=== PATIENT | male | born 1960 | race Caucasian/White ===

== ENCOUNTER 2019-02-14 17:59 | Inpatient (IN) | payer BC ==
[~2019-02-14] VITALS: Ht 182.9 cm; Wt 66.0 kg
--- NOTE | 2019-02-14 18:07 | NUR ---
PT AMBULATED TO ROOM WITH A STEADY GAIT.
--- NOTE | 2019-02-14 18:22 | NUR ---
PT C/O FACIAL NUMBNESS SINCE YESTERDAY WITH BEING SEEN IN [facility] YESTERDAY FOR [facility] SAME. PT STATES HE HAS HAD NECK PROBLEMS THAT CAUSE NUMBNESS TO HIS RIGHT ARM BUT SINCE HIS FACE WAS BECOMING NUMB HE THOUGHT HIS NECK ISSUE WAS BECOMING MORE SERIOUS. PT DENIES CRAIG, VISION CHANGES, N/V, OR UNILATERAL WEAKNESS. FAMILY MEMBER AT BEDSIDE REPORTS HE CAN NOT APPRECIAT ANY SLURRED SPEECH OR FACILA DROOP AT THIS TIME.
[2019-02-14 18:41] LABS: BASOPHILS # (AUTO) 0.04 x10^3/uL (0-0.1); BASOPHILS % (AUTO) 1 % (0-1); EOSINOPHILS # (AUTO) 0.12 x10^3/uL (0-0.4); EOSINOPHILS % (AUTO) 2 % (1-7); LYMPHOCYTES # (AUTO) 2.23 x10^3/uL (1-3.4); LYMPHOCYTES % (AUTO) 32 % (22-44); MD NO; MEAN CORPUSCULAR HGB CONC 33.4 g/dL (33.2-36.2); MEAN CORPUSCULAR VOLUME 95.7 fL (81-97); MEAN PLATELET VOLUME 8.5 fL (7.4-10.4); MONOCYTES # (AUTO) 0.54 x10^3/uL (0.2-0.8); MONOCYTES % (AUTO) 8 % (2-9); NEUTROPHILS # (AUTO) 4.07 x10^3/uL (1.8-6.8); NEUTROPHILS % (AUTO) 58 % (42-75); PLATELET COUNT 206 x10^3/uL (130-400); RED BLOOD COUNT 5.41 x10^6/uL (4.38-5.82); RED CELL DISTRIBUTION WIDTH 13.7 % (9.4-14.8)
[2019-02-14 18:48] LABS: ALBUMIN 3.7 g/dL (3.4-5.0); ANION GAP 8 mmol/L (5-15); CALCIUM 8.7 mg/dL (8.5-10.1); CHLORIDE 106 mmol/L (98-107); CREATININE 0.89 mg/dL (0.7-1.3)
--- NOTE | 2019-02-14 18:55 | NUR ---
PT IN MRI. REPORT TO SHAUN WATTS.
--- NOTE | 2019-02-14 19:00 | NUR ---
PATIENT BACK FROM MRI. DENIES FACIAL NUMBNESSS AT THIS TIME. HOWEVER, REPORTS HE HAD A PERIOD OF LEFT FACIAL NUMBNESS WHILE IN MRI. UPDATED ON ESTIMATED POC
[2019-02-14] MEDS ORDERED: IBUP-1623 PO (19:17)
--- NOTE | 2019-02-14 19:55 | NUR ---
WITH REVIEW OF RESULTS-MRI NOTED TO BE ABNORMAL. SPOKE TO PROVIDER-CALLING NEUROLOGY. NEURO EXAM REMAIN UNREMARKABLE- DENIES FACIAL NUMBNESS/LIP DROOP OF SPEECH ABNORMALITIES FACIAL APPEARANCE COMPARED TO LOCAL DELIVERY DRIVER'S LICENSE PICTURE-NO DIFFERENCE NOTED (SLIGHT LEFT LABIAL FOLD NOTED. NO NEW ORDERS AT THIS TIME TO PLACE 2 PIVS PROVIDER TO BEDSIDE
--- NOTE | 2019-02-14 20:15 | NUR ---
PROVIDER TO BEDSIDE PATIENT WITH SLURRED SPEECH AND WORSENING OF LEFT LABIAL FOLD PROVIDER TO EXPEDITE NEUROLOGY EVAL
[2019-02-14] MEDS ORDERED: ASPIRIN 81 MG TABLET CHEW ONE (20:28)
[2019-02-14] MEDS ORDERED: ASPIRIN 81 MG TABLET CHEW PO ONE ×2 (20:30)
--- NOTE | 2019-02-14 20:30 | NUR ---
SYMPTOMS NOW RESOLVED. SPEECH NORMAL/LABIAL FOLD DROOP IMPROVED
--- NOTE | 2019-02-14 20:37 | NUR ---
324MG OF ASA CHEWED PROVIDER TO BEDSIDE-ORDERS RECEIVED FOR IV BOLUS THEN CTA IMMEDIATELY
--- NOTE | 2019-02-14 20:44 | NUR ---
1LITER NS BOLUS HUNG
[2019-02-14] MEDS ORDERED: OMNIPAQUE 350 MG/ML, 100ML BOTTLE ONE (21:00)
--- NOTE | 2019-02-14 21:08 | NUR ---
HOSPITALIST AT BEDSIDE (DR. COLLADO)
--- NOTE | 2019-02-14 21:11 | NUR ---
REPEAT NEURO EXAM UNREMARKABLE (SPEECH NORMAL/LABIAL FOLD AT BASELINE) VITAL REPEATED (BLOOD PRESSURE EXACTLY THE SAME 40 MINUTES AGO)
--- NOTE | 2019-02-14 21:13 | NUR ---
JOSEP ANDERSON [phone] FRIEND
[2019-02-14] MEDS ORDERED: SODIUM CHLORIDE 0.9% 1,000 ML IV SCH (21:16)
[2019-02-14] MEDS ORDERED: ACETAMINOPHEN 325 MG TABLET PO PRN (21:30)
[2019-02-14] MEDS ORDERED: POLYETHYLENE GLYCOL 17 GM PACKET PO PRN (21:30)
[2019-02-14] MEDS ORDERED: PROMETHAZINE 25 MG/ML, 1ML IM PRN (21:30)
[2019-02-14] MEDS ORDERED: BISACODYL 10 MG SUPP PR PRN (21:30)
[2019-02-14] MEDS ORDERED: NICOTINE 14MG/24 HR PATCH.TD24 TD SCH (21:30)
[2019-02-14] MEDS ORDERED: hydrALAzine 20 MG/ML, 1ML IVPush PRN (21:30)
[2019-02-14] MEDS ORDERED: morphine SULFATE 10 MG/ML, 1ML IVPush PRN (21:30)
[2019-02-14] MEDS ORDERED: SODIUM CHLORIDE 0.9% 1,000ML IVBOLUS ONE (21:30)
[2019-02-14] MEDS ORDERED: DOCUSATE 100 MG CAPSULE PO PRN (21:30)
[2019-02-14] MEDS ORDERED: ONDANSETRON 2MG/ML, 2ML IVPush PRN (21:30)
[2019-02-14] MEDS ORDERED: LABETALOL 5MG/ML, 20ML IVPush PRN (21:30)
[2019-02-14] MEDS ORDERED: ONDANSETRON ODT 4 MG PO PRN (21:30)
[2019-02-14] MEDS ORDERED: OXYcodone IR 5MG TABLET PO PRN (21:30)
--- NOTE | 2019-02-14 21:50 | NUR ---
NEURO EXAM REMAINS UNREMARKABLE PROVIDED WITH CARDIAC DIET AFTER CLARIFICATION WITH DR. COLLADO
[2019-02-14 21:55] LABS: FREE T4 (FREE THYROXINE) 1.05 ng/dL (0.76-1.46); THYROID STIMULATING HORMONE 1.51 mIU/L (0.358-3.740)
[2019-02-14 22:28] VITALS: BP 149/91
[2019-02-14 22:31] LABS: HCT (SEDRATE) 51.7 % (39.2-51.8)
[2019-02-14] MEDS: HEPARIN 5,000 UNITS/ML, 1ML SQ SCH (22:35)
[2019-02-14] MEDS: ATORVASTATIN 40 MG TABLET PO SCH (22:35)
[2019-02-15 00:22] VITALS: BP 143/92
[2019-02-15 05:55] LABS: BASOPHILS # (AUTO) 0.04 x10^3/uL (0-0.1); BASOPHILS % (AUTO) 1 % (0-1); EOSINOPHILS # (AUTO) 0.14 x10^3/uL (0-0.4); EOSINOPHILS % (AUTO) 3 % (1-7); LYMPHOCYTES # (AUTO) 2.04 x10^3/uL (1-3.4); LYMPHOCYTES % (AUTO) 36 % (22-44); MD NO; MEAN CORPUSCULAR HEMOGLOBIN 31.8 pg (27.5-34.5); MEAN CORPUSCULAR VOLUME 96.3 fL (81-97); MEAN PLATELET VOLUME 8.7 fL (7.4-10.4); MONOCYTES # (AUTO) 0.43 x10^3/uL (0.2-0.8); MONOCYTES % (AUTO) 8 % (2-9); NEUTROPHILS # (AUTO) 3.04 x10^3/uL (1.8-6.8); NEUTROPHILS % (AUTO) 54 % (42-75); PLATELET COUNT 164 x10^3/uL (130-400); RED BLOOD COUNT 4.93 x10^6/uL (4.38-5.82); RED CELL DISTRIBUTION WIDTH 13.8 % (9.4-14.8)
[2019-02-15 06:00] LABS: CHLORIDE 111 mmol/L (98-107)
[2019-02-15] MEDS ORDERED: ASPIRIN 81 MG TABLET EC PO SCH (06:00)
[2019-02-15] MEDS ORDERED: ASPIRIN 325 MG TABLET EC PO SCH (06:00)
[2019-02-15] MEDS: HEPARIN 5,000 UNITS/ML, 1ML SQ SCH ×2 (06:00→15:37)
[2019-02-15 06:11] LABS: ALANINE AMINOTRANSFERASE 17 U/L (12-78); ALBUMIN 2.8 g/dL (3.4-5.0); ALKALINE PHOSPHATASE 68 U/L (45-117); ANION GAP 5 mmol/L (5-15); BILIRUBIN,TOTAL 0.7 mg/dL (0.2-1.0); CALCIUM 7.8 mg/dL (8.5-10.1); CHOL/HDL RATIO 2.7; CHOLESTEROL, TOTAL 105 mg/dL (140-239); CREATININE 0.78 mg/dL (0.7-1.3); HDL CHOL % 37 % (26-37); HDL CHOLESTEROL (DIRECT) 39 mg/dL (40-60); LDL CHOLESTEROL,CALCULATED 45 mg/dL (54-169); LDL/HDL RATIO 1.2 (0.5-3.0); TOTAL PROTEIN 5.5 g/dL (6.4-8.2); TRIGLYCERIDES 104 mg/dL (50-200); VLDL CHOLESTEROL 21 mg/dL (0-25)
[2019-02-15 06:58] VITALS: BP 133/82
[2019-02-15 07:55] LABS: MICROSCOPIC NOT IND
[2019-02-15 07:56] LABS: CULTURE INDICATED? NO
[2019-02-15] MEDS ORDERED: ACETAMINOPHEN 325 MG TABLET PO PRN (08:00)
[2019-02-15] MEDS ORDERED: CLOPIDOGREL 75 MG TABLET PO SCH (09:00)
[2019-02-15] MEDS ORDERED: ASPIRIN 81 MG TABLET CHEW PO/NG SCH (09:00)
[2019-02-15] MEDS ORDERED: ASPI-515 PO/NG (09:20)
[2019-02-15] MEDS ORDERED: ATOR40TA78 PO (09:20)
[2019-02-15] MEDS ORDERED: NICO-486 TD (09:20)
[2019-02-15] MEDS ORDERED: CLOP75TA PO (09:20)
[2019-02-15 12:59] VITALS: BP 123/80
[2019-02-15 17:50] LABS: HEMOGLOBIN A1C 5.4 % (4.2-6.3)
[2019-02-15] MEDS: ATORVASTATIN 40 MG TABLET PO SCH (17:58)
[2019-02-15] MEDS ORDERED: ATORVASTATIN 40 MG TABLET PO SCH (21:00)
== END 2019-02-15 18:00 | disposition home or self-care (01) | DRG 66 ==
LOC: ED 19:54 → EDIP 21:21 → 4WST 22:25
PROVIDERS: ADMIT Internal Medicine; ATTEND Internal Medicine
DX: I63.411 Cerebral infarction due to embolism of right middle cerebral artery (principal); F17.200 Nicotine dependence, unspecified, uncomplicated; I67.2 Cerebral atherosclerosis; R29.702 NIHSS score 2; M19.031 Primary osteoarthritis, right wrist; M19.032 Primary osteoarthritis, left wrist; R29.810 Facial weakness; R47.81 Slurred speech; Z79.899 Other long term (current) drug therapy
CPT/HCPCS: 36415; 70496; 70498; 70551; 80048; 80053; 80061; 81003; 82040; 83036; 83735; 84439; 84443; 85025; 85651; 86140; 93005; 93306; 96360; G0378; J1644; Q9967; 92523-GN; J7030